=== PATIENT | female | born 1960 | race Caucasian/White ===

== ENCOUNTER 2024-05-11 17:50 | Inpatient (IN) | payer OTHER ==
[~2024-05-11] VITALS: Ht 160 cm; Wt 108.9 kg
[2024-05-11] MEDS: KETOROLAC 15MG/ML VIAL IM ONE (22:45)
[2024-05-12] MEDS: MORPHINE SULFATE 4 MG/ML INJ (FOR IV/IM USE) IV STA (00:21)
[2024-05-12 00:53] LABS: BASOPHILS % 0.5 % (0.0-2.0); DIFFERENTIAL COMMENT 0; HEMOGLOBIN. 14.1 g/dL (12.0-16.0); LYMPHOCYTES % 28.7 % (20.0-50.0); MEAN CORPUSCULAR HEMOGLOBIN 32.9 pg (28.0-32.0); MEAN CORPUSCULAR HGB CONC 32.9 g/dL (31.0-37.0); MEAN CORPUSCULAR VOLUME 100.2 fL (81.0-99.0); MEAN PLATELET VOLUME 9.5 fl (7.4-10.4); MONOCYTES % 7.2 % (2.0-8.0); NEUTROPHILS % 59.6 % (40.0-76.0); PLATELET 199 x1000/uL (130-400); RED BLOOD CELL COUNT 4.29 mill/uL (4.2-5.4); RED CELL DISTRIBUTION WIDTH 13.9 % (11.6-14.6); WHITE BLOOD COUNT 5.9 x1000/uL (4.5-11.0)
[2024-05-12 00:58] LABS: CHLORIDE 109 mEq/L (98-107); POTASSIUM 4.2 mEq/L (3.5-5.1); SODIUM 145 mEq/L (136-145)
[2024-05-12 00:59] LABS: CALCIUM 11.5 mg/dL (8.7-10.4); CARBON DIOXIDE 29 mEq/L (21-32)
[2024-05-12 01:04] LABS: CREATININE 0.9 mg/dL (0.6-1.0); GLUCOSE 92 mg/dL (70-105); UREA NITROGEN BLOOD 15 mg/dL (9-23)
[2024-05-12 01:34] LABS: TROPONIN I HIGH SENSITIVITY 37 ng/L (3.0-34)
[2024-05-12] MEDS: HYDROCODONE/ACETAMINOPHEN 10/325MG TABLET PO NR (02:17)
[2024-05-12 03:23] LABS: TROPONIN I HIGH SENSITIVITY 33 ng/L (3.0-34)
[2024-05-12] MEDS: MORPHINE SULFATE 2 MG/ML INJ (NOT FOR IM USE) IV PRN (05:11)
[2024-05-12 08:00] VITALS: BP 103/53; PULSE 72; RESP 18; TEMP 36.3; O2SAT 91
[2024-05-12] MEDS ORDERED: ONDANSETRON HCL 4MG/2ML INJ IV PRN (09:30)
[2024-05-12 09:53] VITALS: BP 144/60; PULSE 80; RESP 18; TEMP 36.6
[2024-05-12] MEDS: KETOROLAC 15MG/ML VIAL IV PRN (10:13)
[2024-05-12 12:00] VITALS: BP 110/50; PULSE 69; RESP 17; TEMP 36.3; O2SAT 97
[2024-05-12] MEDS ORDERED: IPRATROPIUM/ALBUTEROL 0.5-3(2.5)MG/3ML NEB HHN PRN (12:30)
[2024-05-12] MEDS: TRAMADOL 50MG TABLET PO PRN (12:49)
[2024-05-12 16:00] VITALS: BP 104/60; PULSE 67; RESP 17; TEMP 36.2; O2SAT 95
[2024-05-12 20:00] VITALS: BP 132/76; PULSE 64; RESP 18; TEMP 36.4; O2SAT 95
[2024-05-13] VITALS: BP 116/67; PULSE 62; RESP 18; TEMP 35.9; O2SAT 96
[2024-05-13 04:00] VITALS: BP 140/66; PULSE 69; RESP 20; TEMP 36.1; O2SAT 99
[2024-05-13 08:00] VITALS: BP 116/85; PULSE 71; RESP 18; TEMP 36.1; O2SAT 93
[2024-05-13 12:00] VITALS: BP 114/77; PULSE 78; RESP 18; TEMP 36; O2SAT 93
[2024-05-13 16:00] VITALS: BP 137/82; PULSE 69; RESP 18; TEMP 36.6; O2SAT 95
[2024-05-13 20:00] VITALS: BP 119/65; PULSE 78; RESP 20; TEMP 36.4; O2SAT 96
[2024-05-14] VITALS: BP 116/69; PULSE 67; RESP 20; TEMP 36.4; O2SAT 97
[2024-05-14 04:00] VITALS: BP 125/68; PULSE 61; RESP 20; TEMP 36.7; O2SAT 97
[2024-05-14 08:54] LABS: BASOPHILS % 0.6 % (0.0-2.0); EOSINOPHILS % 5.3 % (0.0-5.0); HEMATOCRIT. 40.5 % (36.0-48.0); HEMOGLOBIN. 13.1 g/dL (12.0-16.0); LYMPHOCYTES % 29.5 % (20.0-50.0); MEAN CORPUSCULAR HEMOGLOBIN 31.9 pg (28.0-32.0); MEAN CORPUSCULAR HGB CONC 32.3 g/dL (31.0-37.0); MEAN CORPUSCULAR VOLUME 98.7 fL (81.0-99.0); MEAN PLATELET VOLUME 9.2 fl (7.4-10.4); MONOCYTES % 8.2 % (2.0-8.0); NEUTROPHILS % 56.4 % (40.0-76.0); PLATELET 174 x1000/uL (130-400); RED CELL DISTRIBUTION WIDTH 13.9 % (11.6-14.6); WHITE BLOOD COUNT 4.4 x1000/uL (4.5-11.0)
[2024-05-14 09:03] LABS: CHLORIDE 109 mEq/L (98-107); POTASSIUM 4.7 mEq/L (3.5-5.1); SODIUM 143 mEq/L (136-145)
[2024-05-14 09:06] LABS: CALCIUM 11.2 mg/dL (8.7-10.4); CARBON DIOXIDE 30 mEq/L (21-32)
[2024-05-14 09:11] LABS: ALANINE AMINOTRANSFERASE 8 IU/L (10-49); CREATININE 0.8 mg/dL (0.6-1.0); GLUCOSE 85 mg/dL (70-105); UREA NITROGEN BLOOD 19 mg/dL (9-23)
[2024-05-14 09:13] LABS: ALBUMIN 3.4 g/dL (3.2-4.8); ASPARTATE AMINOTRANSFERASE 15 IU/L (<34); BILIRUBIN DIRECT 0.1 mg/dL (<=3.0); BILIRUBIN TOTAL 0.5 mg/dL (0.1-1.0); PROTEIN TOTAL 5.7 g/dL (6.0-8.3)
[2024-05-14 09:29] LABS: FOLIC ACID (FOLATE) SERUM 5.74 ng/mL (>5.38); VITAMIN B12 SERUM 300 pg/mL (211-911)
[2024-05-14 09:39] LABS: HEPATITIS B SURFACE ANTIGEN NEGATIVE (Negative)
[2024-05-14 10:00] LABS: HEPATITIS A AB IGM NEGATIVE (Negative)
[2024-05-14 10:01] LABS: HEPATITIS B CORE AB IGM NEGATIVE (Negative); HEPATITIS C AB NON REACTIVE (Neg) (Negative)
[2024-05-14 12:00] VITALS: BP 109/59; PULSE 70; RESP 18; TEMP 36.1; O2SAT 95
[2024-05-14] MEDS: MAGNESIUM 2 G PREMIX 50 ML IV NR (13:39)
[2024-05-14] MEDS ORDERED: GADOTERATE MEGLUMINE 5 MMOL/10 ML VIAL IV ONE (15:48)
[2024-05-14 20:00] VITALS: BP 114/68; PULSE 81; RESP 20; TEMP 36.8
[2024-05-14] MEDS: CYANOCOBALAMIN 1000MCG/ML VIAL IM NR (20:33)
[2024-05-15] VITALS: BP 118/68; PULSE 69; RESP 20; TEMP 38.2; O2SAT 95
[2024-05-15 04:00] VITALS: BP 113/68; PULSE 64; RESP 20; TEMP 36.7; O2SAT 95
[2024-05-15 08:00] VITALS: BP 138/68; PULSE 70; RESP 19; TEMP 35.7; O2SAT 93
[2024-05-15 09:11] LABS: ALPHA FETOPROTEIN TUMOR MARKER < 1.8 ng/mL (0.0-9.2); CARCINOEMBRYONIC AG - SEND OUT 3.5 ng/mL (0.0-4.7)
[2024-05-15] MEDS: CYANOCOBALAMIN 1000MCG TABLET PO SCH (09:14)
[2024-05-15 12:00] VITALS: BP 129/73; PULSE 69; RESP 19; TEMP 35.9; O2SAT 98
[2024-05-15 12:23] VITALS: BP 129/73; PULSE 69; TEMP 96.1; O2SAT 98
[2024-05-19 04:07] LABS: AMPHETAMINE SCREEN Negative ng/mL (Cutoff:50); BARBITURATE SCREEN Negative ug/mL (Cutoff:0.1); BENZODIAZEPINE SCREEN Negative ng/mL (Cutoff:20); CANNABINOID SCREEN Negative ng/mL (Cutoff:5); OPIATES SCREEN Negative ng/mL (Cutoff:5); OXYCODONE SCREEN Negative ng/mL (Cutoff:5); PHENCYCLIDINE SCREEN Negative ng/mL (Cutoff:8)
== END 2024-05-15 12:48 | disposition home or self-care (01) | DRG 135 ==
LOC: ER 17:50 → 6WST 05-12 01:17 → EDBEDREQTM 05-12 02:03 → EDBEDREQ 05-12 02:03 → 6EST 05-13 15:00
PROVIDERS: ADMIT Internal Medicine; ATTEND Internal Medicine
DX: S22.41XA Multiple fractures of ribs, right side, initial encounter for closed fracture (principal); K80.10 Calculus of gallbladder with chronic cholecystitis without obstruction; K76.0 Fatty (change of) liver, not elsewhere classified; I10 Essential (primary) hypertension; J44.89 Other specified chronic obstructive pulmonary disease; D75.89 Other specified diseases of blood and blood-forming organs; R79.89 Other specified abnormal findings of blood chemistry; E83.52 Hypercalcemia; R16.0 Hepatomegaly, not elsewhere classified; I25.10 Atherosclerotic heart disease of native coronary artery without angina pectoris; Y04.0XXA Assault by unarmed brawl or fight, initial encounter; D18.09 Hemangioma of other sites; Z87.442 Personal history of urinary calculi; Z88.6 Allergy status to analgesic agent; Y93.89 Activity, other specified; Y92.89 Other specified places as the place of occurrence of the external cause; Y99.8 Other external cause status
CPT/HCPCS: 36415; 71250; 73130; 74181; 76700; 80048; 80076; 80307; 82105; 82378; 82607; 82746; 82977; 83735; 84484; 85025; 86301; 86705; 86709; 87340; 97162; 99285; A4606; A9577; J1885; J2270; J3420; J3475